=== PATIENT | female | born 1965 ===

== ENCOUNTER 2023-09-21 21:13 | Outpatient (REF) | payer MEDICARE, SELFPAY ==
[2023-09-21 22:17] LABS: Abs Immature Grans 0.04 10^3/uL (0.0-0.06); Absolute Basophil Count 0.06 10^3/uL (0.0-0.2); Absolute Eosinophil Count 0.03 10^3/uL (0.0-0.7); Absolute Lymphocyte Count 2.25 10^3/uL (1.2-3.4); Basophils % 0.8; Eosinophils % 0.4; HCT 34.3 % (36.0-46.0); HGB 10.9 g/dL (11.2-15.7); Immature Grans % 0.5; Lymphocytes % 28.6; MCH 27.8 pg (27.0-33.0); MCHC 31.8 % (32.0-36.0); MCV 88 fL (80-95); MPV 10.5 fL (8.0-11.0); Monocytes % 8.9; Neutrophils % 60.8; Platelet Count 284 10^3/uL (130-400); RBC 3.92 10^6/uL (3.93-5.22); RDW 14.4 % (11.7-14.6); RDW-SD 46.1 fL; WBC 7.88 10^3/uL (4.4-10.8)
[2023-09-21 22:30] LABS: BUN 12 mg/dL (7-18); CREATININE 0.8 mg/dL (0.55-1.02); Calculated LDL 122 mg/dL (<100); Chloride 100 mmol/L (98-107); Cholesterol 192 mg/dL (<200); Glucose 201 mg/dL (74-106); HDL Cholesterol 34 mg/dL (40-60); Potassium 4.2 mmol/L (3.5-5.1); Sodium 135 mmol/L (136-145); Triglyceride 180 mg/dL (<150)
[2023-09-21 22:51] LABS: Calcium 11.6 mg/dL (8.5-10.1)
[2023-09-21 23:07] LABS: Hemoglobin A1C 6.4 % (<5.7)
== END 2023-09-21 21:14 | disposition home or self-care (01) ==
LOC: NCHCN 21:13
PROVIDERS: Visit Provider Family Medicine
DX: E11.40 Type 2 diabetes mellitus with diabetic neuropathy, unspecified (principal); I10 Essential (primary) hypertension; E78.5 Hyperlipidemia, unspecified
CPT/HCPCS: 80048; 80061; 83036; 85025

== ENCOUNTER 2023-09-25 15:42 | Outpatient (REF) | payer SELFPAY ==
[2023-09-25 15:53] LABS: Anion Gap 13.2 mmol/L (3-11); BUN 14 mg/dL (7-18); CO2 23.8 mmol/L (21.0-32.0); Chloride 101 mmol/L (98-107); Estimated GFR 64.49 (mL/min/1.73m2); Glucose 176 mg/dL (74-106); Potassium 3.8 mmol/L (3.5-5.1); Sodium 138 mmol/L (136-145)
[2023-09-25 16:03] LABS: Calcium 11.6 mg/dL (8.5-10.1)
== END 2023-09-25 15:43 | disposition home or self-care (01) ==
LOC: LBN 15:42
PROVIDERS: Visit Provider Family Medicine
DX: E11.40 Type 2 diabetes mellitus with diabetic neuropathy, unspecified (principal); I10 Essential (primary) hypertension; M33.10 Other dermatomyositis, organ involvement unspecified
CPT/HCPCS: 80048